=== PATIENT | female | born 1975 | race Caucasian/White ===

== ENCOUNTER 2017-06-14 13:54 | Observation (INO) ==
[2017-06-14] MEDS ORDERED: PROPOFOL 200 MG/20 ML VIAL IV ONE (14:35)
--- NOTE | 2017-06-14 14:47 | XRay Report ---
XR ankle 3V RT Indication: Ankle dislocation Comparison: None available Findings: There is fracture dislocation of ankle with the fractures through the lateral and medial malleoli displaced in the lateral direction. There is also valgus angulation present. No degenerative change is present. No soft tissue abnormality is seen. Impression: Fracture dislocation of the ankle as described above. PROCEDURE INTERPRETED AT [facility] DEPARTMENT OF RADIOLOGY Final Report Signed by: Dr. Javier Welch
--- NOTE | 2017-06-14 14:54 | Emergency Department Note ---
Sang Carreno Gwan, am scribing for, and in the presence of, Mario Park MD 14:33 . Vivian Carreno James D, MD, personally performed the services described in this documentation, ascribed by Reece Domínguez in my presence, and it is both accurate and complete 453 . Arrival - Arrival Chief Complaint: Extremity Injury Stated Complaint: broken ankle ED Nursing Triage Note: C/o right ankle pain and edema onset approx 1330 after stepping in hole and falling. Obvious deformity noted. Unable to bear weight right leg. +pedal pulse. Skin warm/dry to touch. Mode of Arrival: Wheelchair Limitations: No Limitations Source: Patient, Old Records Reviewed, RN Notes Reviewed Time Seen by Provider: 06/14/17 14:26 - History of Present Illness HPI Narrative: Patient is a 42 y/o female who presents to the ED with a c/o right ankle pain and edema with an onset 1330 today. Patient stated that [place] she [place] walking from the [place], she stepped into a hole causing her to fall and injure her right ankle. Triage nurse noted that pt's ankle had obvious deformity. Patient denies being able to bear weight on right leg. No other problems/complaints reported in ED. Onset (ago): hour(s) Consistency: constant Severity: moderate Date of Last Menstrual Period: one week ago Allergies/Adverse Reactions: Allergies Allergy/AdvReac Type Severity Reaction Status Date / Time No Known Allergies Allergy Verified 06/14/17 14:24 Home Medications: Home Medications Medication Instructions Recorded Confirmed Type Hydrocodone/Acetaminophen [[place] 1 each PO Q4-6H #20 tablet 06/14/17 Rx 10-325 Tablet] Review of System - Review of System 12 point system: reviewed and no additional remarkable complaints except as stated - Review of System Constitutional: Absent: chills, fever Eyes: Absent: discharge, pain Gastrointestinal: Absent: abdominal pain, nausea, vomiting, diarrhea Genitourinary female: Absent: abnormal menses Musculoskeletal: Present: as per HPI, other (right ankle pain). Absent: arm pain, back pain, leg pain Medical,Surgical,& Family Hx - Medical History HEENT: History of: HEENT Problems (sinus surgery) - Surgical History HEENT Surgeries: Surgical HX of: Tonsilectomy & Adenoidectomy - Social History Smoking Status: Never smoker Frequency of Alcohol Use: None Type of Drug Use: None Exam Physical Examination: GENERAL: This is a well-nourished, well-developed white female in no apparent distress. VITAL SIGNS: HEENT: Head is normocephalic and atraumatic. Pupils are equally round and reactive to light. Extraocular movement are intact. Oropharynx is benign with moist mucous membranes. NECK: Neck is soft and supple without tenderness. There are no masses. There is no lymphadenopathy. LUNGS: Lungs are clear to auscultation bilaterally. Chest rises symmetrically. There is no chest wall tenderness. CV: Heart is regular rate and rhythm without murmurs, rubs, or gallops. ABDOMEN: Abdomen is soft, non-tender to palpation. There are no abnormal masses palpated. There is no organomegaly. Bowel sounds are present and active. SKIN: Skin is warm and dry. No rash. EXTREMITIES: Patient has an obviously deformed right ankle with swelling and an obvious dislocation. Dorsalis pedis pulses 2+. Capillary refill is less than 2 seconds. There is no pedal edema. NEUROLOGIC: Awake, alert, and oriented x4. Cranial nerves II through XII are grossly intact. There are no motorsensory deficits. PSYCHIATRIC: Normal affect. Normal mood. Vital Signs: Vital Signs Temperature 98.3 F 06/14/17 14:13 Pulse Rate 118 H 06/14/17 14:13 Respiratory Rate 20 06/14/17 14:13 Blood Pressure 154/88 06/14/17 14:13 O2 Sat by Pulse Oximetry 100 06/14/17 14:13 Course - Consultations Consultation #1: Discussed with Dr. Sow. Patient will be admitted to his service and patient will go internal fixation in the a.m. Time: 15:09 Procedures - Orthopedic Fracture Reduction Fracture #1 Consent Obtained: written consent Time Out Performed: Yes Side: right Fracture Reduction Location: tibia, fibula Analgesia: procedural sedation Technique: direct manipulation Post Reduction X-rays Demonstrate: acceptable reduction Post-reduction neuro exam: intact Post-reduction vascular exam: intact Splint Applied: Yes (Posterior splint and stirrup splint placed) Patient Tolerated Procedure: well - Procedural Sedation Indication: fracture/dislocation reduction ASA Class: I Time of Last PO Intake: 08:30 Preparation: desk monitor applied, pulse oximeter, supplemental O2 applied, suction/airway equipment at bedside, IV secured IV Propofol Dose (mgs): 75 Patient Tolerated Procedure: well Complications: none Results - Diagnostic Findings Procedure: X-ray: image reviewed by me (Right ankle x-ray: Trimalleolar fracture /dislocation. Postreduction film: Reasonable anatomic alignment.) Disposition Clinical Impression: Trimalleolar fracture of right ankle Case discussed with: patient Disposition: Still a Patient Condition: Stable Additional Instructions: Ice, elevate, [place] 10 1 p.o. every 4-6 hours as needed pain. Patient is to follow-up with Dr. Sow for definitive treatment to include internal fixation of right ankle fracture. Prescriptions: Hydrocodone/Acetaminophen [[place] 10-325 Tablet] 1 each PO Q4-6H #20 tablet New Prescriptions: Rx's Medication Instructions Recorded Hydrocodone/Acetaminophen [[place] 1 each PO Q4-6H #20 tablet 06/14/17 10-325 Tablet] Time of Disposition: 15:00
[2017-06-14] MEDS ORDERED: HYDROmorphone 2 MG/1 ML VIAL IV STA (15:00)
[2017-06-14] MEDS ORDERED: ONDANSETRON 4 MG/2 ML VIAL IV STA (15:00)
[2017-06-14] MEDS ORDERED: HYDROmorphone 2 MG/1 ML VIAL ONE (15:21)
[2017-06-14] MEDS ORDERED: ONDANSETRON 4 MG/2 ML VIAL ONE (15:21)
--- NOTE | 2017-06-14 15:43 | XRay Report ---
XR ankle 2V RT Clinical Information: right ankle reduction Comparison: Prior radiograph 06/14/2017 at 2:27 PM Findings: External cast material is noted about the right ankle/foot. The comminuted distal tibia/fibular fractures demonstrate some improvement in alignment. Again, there is tibiotalar dislocation and medial tilt, which is somewhat lessened. No additional fractures are identified. Soft tissue swelling is noted. Impression: External fixation of the known distal tibia and fibular fractures with some improvement in alignment of fracture fragments. PROCEDURE INTERPRETED AT [facility] DEPARTMENT OF RADIOLOGY Final Report Signed by: Tony Reyes
[2017-06-14] MEDS ORDERED: PROPOFOL 200 MG/20 ML VIAL IV STA (15:45)
[2017-06-14] MEDS ORDERED: MAGNESIUM HYDROXIDE SUSP 30 ML UDCUP PO PRN (16:23)
[2017-06-14] MEDS: SODIUM CHLORIDE 0.9% 1,000 ML IV SCH (16:34)
[2017-06-14] MEDS ORDERED: MORPHINE 2 MG/1 ML SYRINGE IV PRN (17:18)
--- NOTE | 2017-06-14 17:36 | Orthopedic History & Physical ---
Assessment and Plan (1) Trimalleolar fracture of right ankle Status: Acute Current Visit: Yes History of Present Illness Chief complaint: Right ankle fracture dislocation History of present illness: Ms. Clayton is a 42 year old female who was walking back to work from [employer] when she slipped and fell, sustaining pain and deformity to her right ankle. She assumes she placed her foot in a hole. She denies any loss of consciousness , shortness of breath or other antecedent event. She has not had any significant history of problems with her foot or ankle. She has had some mild sprains. She denies numbness or tingling, other injury or prior injury. Past medical history is negative. Past surgical history significant for tonsillectomy and sinus surgery Medicines control pills. Excedrin as needed. No known drug allergies. She is employed at [employer]. Alert and oriented Lungs clear to auscultation Heart regular rate and rhythm Abdomen soft. Spine nontender to palpation. Bilateral upper extremities and left lower extremity are nontender. Her right lower extremity is splinted. She can flex and extend her toes. Sensation is intact to her first dorsal webspace, plantar and dorsal aspects of her foot. She is a 2+ dorsalis pedis pulse. Capillary refills less than 2 seconds. Radiographs injury and postreduction films were reviewed. They demonstrate interval reduction of a trimalleolar ankle fracture dislocation. The posterior malleolar fragment is small. Impression: Right trimalleolar ankle fracture dislocation Plan: I have advised open reduction fixation. Risks and benefits were discussed. We briefly discussed return to work. I anticipate that she will not be able to drive for 2-1/2-3 months. Risks include but not limited to infection, bleeding, anesthesia, arthritis, stiffness, need for further surgery , thromboembolic event, myocardial infection infarction, loss of limb, , etc. Home Medications Medication Instructions Recorded Confirmed Type Hydrocodone/Acetaminophen [[place] 1 each PO Q4-6H #20 tablet 06/14/17 Rx 10-325 Tablet] Multivitamin/Iron/Folic Acid 1 each PO QAM 06/14/17 06/14/17 History [Centrum Women Tablet] Norethindrone AC-Eth Estradiol 1 each PO QAM 06/14/17 06/14/17 History [Microgestin 21 1.5-30 Tab] Allergies Allergy/AdvReac Type Severity Reaction Status Date / Time No Known Allergies Allergy Verified 06/14/17 14:24 12 point system: reviewed and no additional remarkable complaints except as stated Medical,Surgical,& Family Hx - Medical History HEENT: History of: HEENT Problems (sinus surgery) - Surgical History HEENT Surgeries: Surgical HX of: Tonsilectomy & Adenoidectomy - Social History Smoking Status: Never smoker Frequency of Alcohol Use: None Type of Drug Use: None Exam - Constitutional Vitals: Period Temp Pulse Resp BP Sys/[place] Pulse Ox Last 24 Hr 98.3 F-99.4 F 95-118 18-20 117-166/72-94 98-100
[2017-06-14 17:57] LABS: Basophils % 0.2 % (0.0-0.8); Eosinophils % 0.1 % (0.00-10.9); Hemoglobin 12.8 GM/DL (12.0-16.0); Immature Granulocytes % 0.4 %; Immature Granulocytes Absolute 0.05 #; Lymphocytes # 1.6 10*3/uL (1.4-4.0); Lymphocytes % 13.4 % (21.3-54.2); Mean Corpuscular HGB Conc 34.6 GM/DL (32-36); Mean Corpuscular Hemoglobin 30 PG (27-34); Mean Corpuscular Volume 85.6 FL (87-102); Mean Platelet Volume 10.3 FL (9.6-12.0); Monocytes # 0.4 10*3/uL (0.11-0.8); Monocytes % 3.7 % (1.7-12.7); Neutrophils # 9.7 10*3/uL (1.4-7.4); Neutrophils % 82.2 % (38.7-73.9); Platelet Count 299 T/CUMM (130-400); Red Blood Count 4.32 MC/CUMM (3.8-5.5); Red Cell Distribution Width 12.6 % (9.3-17.3); White Blood Count 11.7 T/CUMM (4-12)
[2017-06-14 18:29] LABS: Alanine Aminotransferase 16 U/L (13-56); Albumin 3.4 G/DL (3.4-5.0); Alkaline Phosphatase 72 U/L (45-117); Aspartate Amino Transferase 15 U/L (0-37); Bilirubin,Total < 0.39 MG/DL (0.2-1.0); Blood Urea Nitrogen 10 MG/DL (7-18); Calcium 8.9 MG/DL (8.5-10.1); Glucose 150 MG/DL (74-106); Osmolality,Calculated 278.5 MOS/KG (273-304); Potassium 4.1 MMOL/L (3.5-5.1); Sodium 139 MMOL/L (136-145); Total Protein 6.6 G/DL (6.4-8.3)
[2017-06-14] MEDS: MORPHINE 2 MG/1 ML SYRINGE IV PRN ×2 (19:34→23:13)
[2017-06-15] MEDS: SODIUM CHLORIDE 0.9% 1,000 ML IV SCH (02:10)
[2017-06-15] MEDS: MORPHINE 2 MG/1 ML SYRINGE IV PRN ×3 (02:10→13:54)
--- NOTE | 2017-06-15 06:30 | EKG Report ---
Stationary ECG Study [facility] Test Date: 06/15/2017 5:40:56 AM Pat Name: NARAYAN VARGAS Department: Room: 324 Gender: F Planer Hand: EF : 1975 Requested by: Karl Esparza Order Number: [id number] Reading MD: SIDNEY BARRAZA Intervals [place] Rate: 98 P: 69 GA: 117 QRS: 49 QRSD: 100 T: 36 QT: 347 QTc: 402 Interpretive Statements SINUS RHYTHM WITH SHORT GA INTERVAL INCOMPLETE RIGHT BUNDLE BRANCH BLOCK LEFT ATRIAL ABNORMALITY Electronically Signed On 06-17-17 17:30:07 CDT by SIDNEY BARRAZA [email or web address]
[2017-06-15] MEDS ORDERED: DIAZEPAM 5 MG TABLET PO ONE (07:25)
[2017-06-15] MEDS ORDERED: FAMOTIDINE 20 MG TABLET PO ONE (07:25)
--- NOTE | 2017-06-15 07:26 | Orthopedic Progress Note ---
Assessment and Plan (1) Trimalleolar fracture of right ankle Status: Acute Current Visit: Yes Orthopedics - Subjective Interval history: Mrs. Clayton states that the ankle has become more uncomfortable since I saw her yesterday afternoon. She is ready to proceed with surgery. Splint is clean, dry and intact. She can flex and extend her toes. Sensation is intact to light touch globally to her forefoot. Capillary refills less than 2 seconds. Impression: Right trimalleolar ankle fracture Plan: All questions were answered. Plan on proceeding with open reduction fixation later this morning. Exam - Constitutional Vitals: Period Temp Pulse Resp BP Sys/[place] Pulse Ox Last 24 Hr 97.0 F-99.4 F 85-118 18-20 109-166/60-94 98-100 Results - Labs CBC & BMP: 06/14/17 17:46 06/14/17 17:46
[2017-06-15] MEDS ORDERED: LACTATED RINGERS 1,000 ML IV SCH ×2 (07:30→11:30)
[2017-06-15] MEDS ORDERED: SCOPOLAMINE 1.5 MG PATCH TRANSDERM ONE (07:44)
[2017-06-15] MEDS ORDERED: MICROGESTIN PO SCH (09:00)
[2017-06-15] MEDS ORDERED: ROPIVACAINE 0.5% 30 ML VIAL ONE (09:45)
[2017-06-15] MEDS: MULTIVITAMIN (CENTRUM) TABLET PO SCH (10:39)
[2017-06-15] MEDS ORDERED: MAGNESIUM HYDROXIDE SUSP 30 ML UDCUP PO PRN (11:05)
[2017-06-15] MEDS ORDERED: KETOROLAC 30 MG/1 ML VIAL IV PRN (11:06)
[2017-06-15] MEDS ORDERED: BACITRACIN OINT 0.9 GM PACK TOP ONE (12:05)
--- NOTE | 2017-06-15 12:36 | Operative Note ---
Date of procedure: 06/15/17 Procedure: DIAGNOSIS: Right displaced trimalleolar fracture PROCEDURE: Right trimalleolar open reduction and fixation without fixation posterior lip (CPT#23225) SURGEON: Juanjose ANESTHESIA: General and popliteal block PROCEDURE and FINDINGS: After adequate anesthesia was induced, the limb was prepped and draped in the usual sterile fashion. Limb was exsanguinated with Esmarch. Tourniquet was inflated to 300 mmHg. A lateral approach to the distal fibula was made. Skin, subcutaneous tissue, and periosteum was incised longitudinally. Fracture was exposed and reduced. Permanent fixation was obtained with a lag screw from anterior to posterior and a 5 hole one third semitubular antiglide plate. The wound was irrigated. Fascia was closed with 0 Vicryl [id number] suture. Subcutaneous tissue was closed with 3-0 Vicryl interrupted, buried sutures. Skin was closed with salma The medial malleolus was exposed through a medial incision. Neurovascular structures were protected. Fracture was identified and reduced. Medial malleolus was secured with pins and then followed with 4.0 mm cannulated partially threaded screws. Wound were irrigated. Periosteum was approximated with 0 Vicryl figure-of- eight sutures. Subcutaneous tissues were closed with 3-0 Vicryl interrupted, buried sutures. Skin was approximated with salma. Sterile dressing and short leg splint was applied. Tourniquet was released for an approximate time of 38 minutes. Image intensification was used throughout the procedure. Surgeon / Physician: Karl Sow Jr. Results - Labs CBC & BMP: 06/14/17 17:46 06/14/17 17:46 Discharge Plan - Discharge Medications New Hydrocodone/Acetaminophen [[place] 10-325 Tablet] 1 each PO Q4-6H #20 tablet No Action Norethindrone AC-Eth Estradiol [Microgestin 21 1.5-30 Tab] 1 each PO QAM Multivitamin/Iron/Folic Acid [Centrum Women Tablet] 1 each PO QAM - Follow Up or Referral - Forms/Instructions
[2017-06-15] MEDS ORDERED: SEVOFLURANE 1 UNIT/15 MINUTE INH ONE (13:35)
[2017-06-15] MEDS ORDERED: MIDAZOLAM 2 MG/2 ML VIAL ONE (13:35)
[2017-06-15] MEDS ORDERED: PROPOFOL 200 MG/20 ML VIAL IV ONE (13:35)
--- NOTE | 2017-06-15 13:35 | XRay Report ---
XR ankle 3V RT Indication: Fracture fixation Comparison: 14 June 2017 Findings: Fluoroscopic imaging was provided during internal fixation of medial malleolus and lateral malleolus fractures. Alignment appears within normal limits on the images submitted. Fluoroscopy time 6.1 seconds. Impression: Fracture fixation as described above. PROCEDURE INTERPRETED AT [facility] DEPARTMENT OF RADIOLOGY Final Report Signed by: Dr. Javier Welch
[2017-06-15] MEDS ORDERED: ACETAMINOPHEN 1,000 MG/100 ML VIAL IV ONE (13:36)
[2017-06-15] MEDS ORDERED: DEXAMETHASONE 10 MG/1 ML VIAL ONE (13:36)
[2017-06-15] MEDS ORDERED: KETOROLAC 30 MG/1 ML VIAL ONE (13:36)
[2017-06-15] MEDS ORDERED: ONDANSETRON 4 MG/2 ML VIAL ONE (13:36)
[2017-06-15] MEDS ORDERED: fentaNYL 100 MCG/2 ML VIAL ONE (13:36)
[2017-06-16 07:07] LABS: Basophils % 0.2 % (0.0-0.8); Hematocrit 31.5 VOL% (35.7-47.0); Immature Granulocytes % 0.4 %; Immature Granulocytes Absolute 0.04 #; Lymphocytes # 1.4 10*3/uL (1.4-4.0); Lymphocytes % 13.6 % (21.3-54.2); Mean Corpuscular HGB Conc 34.9 GM/DL (32-36); Mean Corpuscular Hemoglobin 30 PG (27-34); Mean Corpuscular Volume 84.7 FL (87-102); Monocytes # 0.6 10*3/uL (0.11-0.8); Monocytes % 5.9 % (1.7-12.7); Neutrophils # 8.3 10*3/uL (1.4-7.4); Neutrophils % 79.9 % (38.7-73.9); Platelet Count 254 T/CUMM (130-400); Red Blood Count 3.72 MC/CUMM (3.8-5.5); Red Cell Distribution Width 12.4 % (9.3-17.3); White Blood Count 10.3 T/CUMM (4-12)
[2017-06-16 07:21] LABS: Calcium 8.4 MG/DL (8.5-10.1); Osmolality,Calculated 274.5 MOS/KG (273-304); Potassium 4.3 MMOL/L (3.5-5.1)
--- NOTE | 2017-06-16 08:41 | Anesthesia Post-Op ---
Anesthesia Post OP - Post Ansesthetic Evaluation Patient seen in post op: Yes Resp: within normal limits CV: within normal limits Mental: within normal limits Temp: within normal limits [id number]: within normal limits Nausea and Vomiting: within normal limits Pain: within normal limits
--- NOTE | 2017-06-16 08:44 | Discharge Summary ---
Hospital Course - Hospital Course Hospital Course: Mrs Clayton was admitted after undergoing an uncomplicated open reduction fixation of a right trimalleolar ankle fracture dislocation. She received perioperative antimicrobial prophylaxis. She received physical therapy and was discharged home postoperative day #1. Her block is still working. She is extension and flexion of her lesser toes and flexion of her great toe. Capillary refills less than 2 seconds. She still has diminished sensation to her first dorsal webspace and dorsal aspects of her foot. Is intact plantarly. Capillary refill is less than 2 seconds. Her splint is clean, dry and intact. Diagnosis - Discharge Diagnosis (1) Trimalleolar fracture of right ankle Status: Acute Specialty Discharge - Follow Up or Referrals Follow up with: Karl Sow Jr., MD [Physician] - 06/27/17 8:25 am (7-10 days) Discharge Plan - Discharge Data Disposition: Disch To Home/Self Care Condition at Discharge: Stable Discharge Diet: advance to your usual diet Activity: ambulate only with your walker Hygiene: keep area(s) dry Weight Bearing at Discharge: non-weight bearing Driving: not until seen by doctor - Discharge Medications New Hydrocodone/Acetaminophen [[place] 10-325 Tablet] 1 each PO Q4-6H #20 tablet No Action Norethindrone AC-Eth Estradiol [Microgestin 21 1.5-30 Tab] 1 each PO QAM Multivitamin/Iron/Folic Acid [[place] Women Tablet] 1 each PO QAM - Follow Up or Referral Follow Up: Karl Sow Jr., MD [Physician] - 06/27/17 8:25 am (7-10 days) - Forms/Instructions Forms: Acute Care Work/School Release Instructions: Open Reduction and Internal Fixation of an Ankle Fracture (DC) Additional Discharge Instructions: Follow-up appointment in 10-14 days. Patient needs to be off work until her return appointment. Strict nonweightbearing right lower extremity. Keep splint clean, dry and intact. Arrange for walker or crutches for home use. Prescription for [place] 7.5 with 25 tablets was written. Exam - Constitutional Vitals: Period Temp Pulse Resp BP Sys/[place] Pulse Ox Last 24 Hr 97.4 F-99.4 F 89-108 16-18 107-148/56-83 95-100 Discharge Results Labs on day of discharge: Labs from last 24 hours 06/16/17 06/16/17 05:43 05:43 WBC 10.3 RBC 3.72 L Hgb 11.0 L Hct 31.5 L MCV 84.7 L MCH 30 MCHC 34.9 RDW 12.4 Plt Count 254 MPV 11.0 Neut % (Auto) 79.9 H Lymph % (Auto) 13.6 L [place] % (Auto) 5.9 Eos % (Auto) 0.0 Baso % (Auto) 0.2 Neut # (Auto) 8.3 H Lymph # (Auto) 1.4 [place] # (Auto) 0.6 Eos # (Auto) 0.0 Baso # (Auto) 0.0 Immature Gran % 0.4 Nucleated RBC % 0.0 Immature Gran # 0.04 Nucleated RBCs # 0.00 Immature Plt Fraction 0.0 Sodium 139 Potassium 4.3 Chloride 105 Carbon Dioxide 28 Anion Gap 10.3 BUN 11 Creatinine 0.50 L GFR Calculation 114 BUN/Creatinine Ratio 22.00 H Glucose 82 Calculated Osmolality 274.5 Calcium 8.4 L DS: Provider Date of admission: 06/14/17 15:09 Primary care physician: Win Landaverde DO Attending physician on admission: Karl Sow Jr., Consults: 06/14/17 16:23 Consult to Anesthesiology [CONS] Routine Consulting Provider: Reason for Anesthesiology: Pre-op Clearance 06/15/17 11:05 Consult to Physical Therapy [CONS] Routine Reason for Physical Therapy: Evaluate and Treat Start Therapy: Today Consult Comment: will jarvis Discharging clinician: Karl Sow Jr., Expected date of discharge: 06/16/17
[2017-06-16] MEDS: MULTIVITAMIN (CENTRUM) TABLET PO SCH (09:29)
[2017-06-16 10:59] VITALS: BP 128/66
== END 2017-06-16 15:35 | disposition home or self-care (01) ==
LOC: N.ED 13:54 → N.EDINP 13:54 → N.3E 15:47
PROVIDERS: ADMIT Orthopaedic Surgery; ATTEND Orthopaedic Surgery